=== PATIENT | female | born 1980 | race Caucasian/White ===

== ENCOUNTER 2016-05-31 16:54 | Emergency (ER) | payer SELFPAY ==
[2016-05-31 16:55] VITALS: BMI 38.0
[2016-05-31 17:40] VITALS: TEMP 98
[2016-05-31 18:13] LABS: AUTOMATED BASOPHIL 0.8 % (0-2); AUTOMATED EOSINOPHIL 2.5 % (0-5); AUTOMATED MONOCYTE 8.3 % (3-10); AUTOMATED NEUTROPHIL 49.4 % (45-76); MPV 7.6 fL (7.4-10.4)
[2016-05-31 18:26] LABS: BLOOD UREA NITROGEN 16 MG/DL (7-17); CALCIUM 9.6 MG/DL (8.4-10.2); CALCULATED OSMOLALITY 266 MOs/Kg (270-290); CHLORIDE 107 mEq/L (98-107); GLUCOSE 86 MG/DL (70-99); SODIUM LEVEL 138 mEq/L (137-146); TOTAL PROTEIN 7.2 G/DL (6.3-8.2)
[2016-05-31] MEDS ORDERED: ONDANSETRON HCL 4 MG/2 ML VIAL IV ONE (23:16)
[2016-05-31] MEDS ORDERED: MORPHINE 4 MG/ML INJECTION IV ONE (23:16)
[2016-05-31] MEDS ORDERED: NS 1,000 ML IV ONE (23:16)
--- NOTE | 2016-05-31 23:21 | EDPRACDOC ---
- General Information Chief Complaint: Vaginal Bleeding Stated Complaint: 21 DAYS VAGINAL BLEEDING ABD PAIN VOMITING Time Seen by Provider: 05/31/16 23:11 Information Source: Patient Mode of Arrival: Car Home Medications: Home Medications Ondansetron HCl [Zofran] 4 mg PO Q6H PRN #15 tab 04/03/16 Oxycodone HCl [Roxicodone] 5 mg PO Q4-6H PRN #10 tablet 04/03/16 Phenazopyridine [Pyridium] 100 mg PO TID #14 tab 04/03/16 Sulfamethoxazole/Trimethoprim [Bactrim Ds Tablet] 1 tab PO BID #14 tab 04/03/16 Ketorolac Tromethamine [Toradol] 10 mg PO Q6H PRN #20 tab 06/01/16 Medroxyprogesterone Acetate [Provera] 10 mg PO DAILY #10 tablet 06/01/16 Oxycodone HCl [Roxicodone] 5 mg PO Q6H #15 tablet 06/01/16 Allergies/Adverse Reactions: Allergies Allergy/AdvReac Type Severity Reaction Status Date / Time No Known Allergies Allergy Verified 01/11/12 14:15 - History of Present Illness Onset: 21 DAYS HPI: PT SAID THAT SHE'S HAD 21 DAYS OF VAGINAL BLEEDING. SHE ALSO HAS LOWER ABD PAIN AND N/V FOR 3 DAYS. PT DOES NOT HAVE A DR, SO SHE CAME TO THE ED. Description: Reports: Spontaneous Location: Reports: Internal Vagina Relevant History: Reports: None Control Method: Reports: None Pain Severity: Moderate Vaginal Bleeding Description: Reports: Bright Red ED Past Medical History - History Reviewed No Past Medical History: Yes Patient has no past medical history - Patient Medical History Psychological History: Denies: Depression Surgical History: Reports: Cholecystectomy, Tonsillectomy/Adnoidectomy - Family Medical History Reports: Cancer - Social Medical History Smoking Status: Heavy tobacco smoker (5 or more cigarettes/day or daily pipe/ cigar) ETOH: None Substance Abuse: None Lives With: Significant Other Lives In: Home EDM Review of Systems - Review of Systems ROS Negative Except as Marked: Yes All systems reviewed and were negative except as marked Gastrointestinal: Nausea, Pain, Vomiting Genitourinary: Vaginal Bleeding - Physical Exam Constitutional: Alert (Awake), No apparent distress Oriented to: Time, Person, Place Last recorded Vital Signs: Last Vital Signs Temp 98 F 05/31/16 17:37 Pulse 91 05/31/16 17:37 Resp 20 05/31/16 17:37 BP 168/88 05/31/16 17:37 Pulse Ox 98 05/31/16 17:37 Oxygen Pulse Oxygen Saturation 98 O2 Device Room Air Oxygen Flow Rate Fraction of Inspired Oxygen ( FIO2) - HEENT Head: Normal ( normocephalic) Eye Exam: Normal (PERRL, EOMI, Sclera white) Oropharynx: Normal (Pharynx:Moist without exudate,Gums-no swelling) ENT EAC: Normal TMJ: Normal Nose: No Symptoms Reported (septum midline) Neck: Normal (FROM, trachea at midline) - Respiratory/Cardiovascular Respiratory: Normal - CTA (BBS clear to auscultation without adventitious sounds ) Cardiovascular: Normal (RRR without murmur, gallop or rub) - GI Auscultation: Normal (NABS) Palpation: Normal (Soft,No rebound or guarding, non distended) Tenderness: Suprapubic Levin's Sign: Negative - Bladder: Normal External: Normal Vagina: Blood Cervix: Blood Uterus: Normal size Adnexa: Bilateral: Tender - Musculoskeletal Back: Normal (Non-Tender) Extremities: Normal (Normal tone, Pulses 2+ No cyanosis or edema, FROM) - Integumentary Skin: Normal, Warm, Dry Lymphatics: Normal (no adenopathy) - Neurologic Memory Impaired: Normal Motor Function: Normal (Normal tone, Pulses 2+ No cyanosis or edema, FROM) Cranial Nerve: Normal (CN II-X11 intact sensation, strength 5/5) Cerebellar: Normal Mood Description: Normal Thought: Coherent Perception: Normal - Results 05/31/16 17:43 05/31/16 17:43 WBC 11.3 xk/uL (3.8-10.8) H 05/31/16 17:43 RBC 4.21 xM/uL (4.20-5.40) 05/31/16 17:43 Hgb 12.9 g/dL (12.0-16.0) 05/31/16 17:43 Hct 38.4 % (36-47) 05/31/16 17:43 MCV 91 fL (81-99) 05/31/16 17:43 MCH 30.6 pg (27-32) 05/31/16 17:43 MCHC 33.6 g/dl (33-36) 05/31/16 17:43 RDW 13.7 % (11.5-14.5) 05/31/16 17:43 Plt Count 349 xk/uL (130-400) 05/31/16 17:43 MPV 7.6 fL (7.4-10.4) 05/31/16 17:43 Neut % (Auto) 49.4 % (45-76) 05/31/16 17:43 Lymph % (Auto) 39.0 % (17-44) 05/31/16 17:43 [place] % (Auto) 8.3 % (3-10) 05/31/16 17:43 Eos % (Auto) 2.5 % (0-5) 05/31/16 17:43 Baso % (Auto) 0.8 % (0-2) 05/31/16 17:43 Absolute Neuts (auto) 5.54 xk/uL (1.7-8.2) 05/31/16 17:43 Absolute Lymphs (auto) 4.41 xk/uL (0.65-4.75) 05/31/16 17:43 Sodium 138 mEq/L (137-146) 05/31/16 17:43 Potassium 4.4 mEq/L (3.5-5.1) 05/31/16 17:43 Chloride 107 mEq/L (98-107) 05/31/16 17:43 Carbon Dioxide 21 mMOL/L (22-33) L 05/31/16 17:43 Anion Gap 14 mEq/L (8-16) 05/31/16 17:43 BUN 16 MG/DL (7-17) 05/31/16 17:43 Creatinine 0.60 MG/DL (0.52-1.04) 05/31/16 17:43 Estimated GFR (MDRD) > 60 mL/min (>=60) 05/31/16 17:43 Glucose 86 MG/DL (70-99) 05/31/16 17:43 Calculated Osmolality 266 MOs/Kg (270-290) L 05/31/16 17:43 Calcium 9.6 MG/DL (8.4-10.2) 05/31/16 17:43 Total Bilirubin 0.2 MG/DL (0.2-1.3) 05/31/16 17:43 AST 13 IU/L (14-36) L 05/31/16 17:43 ALT 33 IU/L (9-52) 05/31/16 17:43 Alkaline Phosphatase 70 IU/L (38-126) 05/31/16 17:43 Total Protein 7.2 G/DL (6.3-8.2) 05/31/16 17:43 Albumin 4.0 G/DL (3.5-5.0) 05/31/16 17:43 Lab Results 05/31/16 05/31/16 17:43 17:43 WBC 11.3 H RBC 4.21 Hgb 12.9 Hct 38.4 MCV 91 MCH 30.6 MCHC 33.6 RDW 13.7 Plt Count 349 MPV 7.6 Neut % (Auto) 49.4 Lymph % (Auto) 39.0 [place] % (Auto) 8.3 Eos % (Auto) 2.5 Baso % (Auto) 0.8 Absolute Neuts (auto) 5.54 Absolute Lymphs (auto) 4.41 Sodium 138 Potassium 4.4 Chloride 107 Carbon Dioxide 21 L Anion Gap 14 BUN 16 Creatinine 0.60 Estimated GFR (MDRD) > 60 Glucose 86 Calculated Osmolality 266 L Calcium 9.6 Total Bilirubin 0.2 AST 13 L ALT 33 Alkaline Phosphatase 70 Total Protein 7.2 Albumin 4.0 - Diagnostic Imaging Abdomen Image interpreted by: Radiologist 1. No CT evidence for acute intra-abdominal or pelvic process. 2. Status post cholecystectomy. Decision Time to Discharge: 02:56 - Departure Yes I personally saw and evaluated the patient. Disposition: Home Condition: Fair Final Diagnosis: Dysfunctional uterine bleeding, Menometrorrhagia Instructions: Dysfunctional Uterine Bleeding (ED) Education/Counseling Given To: Patient, Family Member Education/Counseling Given Regarding: Diagnosis, Treatment, Follow Up Referrals: None,No Provider [Primary Care Provider] - One Week Seth Harman MD [Staff Physician] - One Week Prescriptions: New Ketorolac Tromethamine [Toradol] 10 mg PO Q6H PRN #20 tab PRN Reason: Pain Medroxyprogesterone Acetate [Provera] 10 mg PO DAILY #10 tablet Oxycodone HCl [Roxicodone] 5 mg PO Q6H #15 tablet No Action Oxycodone HCl [Roxicodone] 5 mg PO Q4-6H PRN #10 tablet PRN Reason: Breakthrough Pain Phenazopyridine [Pyridium] 100 mg PO TID #14 tab Sulfamethoxazole/Trimethoprim [Bactrim Ds Tablet] 1 tab PO BID #14 tab Ondansetron HCl [Zofran] 4 mg PO Q6H PRN #15 tab PRN Reason: Nausea/Vomiting
[2016-06-01] MEDS ORDERED: HYDROmorphone 1 MG INJECTION IV ONE ×2 (00:01→01:23)
[2016-06-01] MEDS ORDERED: LORAZEPAM 2 MG/ML VIAL IV ONE (00:47)
[2016-06-01] MEDS ORDERED: Pharmacy Review for Metformin - IV Contrast Given SCH (01:00)
[2016-06-01 01:08] LABS: LEUKOCYTES/URINE NEG (NEGATIVE); NITRITE/URINE NEG (NEGATIVE); RBC/URINE 0-2 (0-5); URINE OCCULT BLOOD 1+ (NEG/TRACE); WBC/URINE 0-2 (0-5)
--- NOTE | 2016-06-01 02:55 | DIRPT ---
CLINICAL DATA: Initial evaluation for severe pelvic pain for 2 days. EXAM: CT ABDOMEN AND PELVIS WITH CONTRAST TECHNIQUE: Multidetector CT imaging of the abdomen and pelvis was performed using the standard protocol following bolus administration of intravenous contrast. CONTRAST: 100 cc of Isovue 370. COMPARISON: Prior study from 12/30/2011. FINDINGS: Mild subsegmental atelectasis seen dependently within the visualized lung bases. Linear opacity within the medial aspect of the right middle lobe also consistent with atelectasis. Visualized lungs are otherwise unremarkable. The liver demonstrates a normal contrast enhanced appearance. Gallbladder absent. Minimal intrahepatic biliary dilatation likely related to post cholecystectomy changes. Spleen, adrenal glands, and pancreas demonstrate a normal contrast enhanced appearance. Kidneys are equal in size with symmetric enhancement. No nephrolithiasis, hydronephrosis, or focal enhancing renal mass. Stomach within normal limits. No evidence for bowel obstruction. No abnormal wall thickening, mucosal enhancement, or inflammatory fat stranding seen about the bowels. No evidence for acute appendicitis. Bladder within normal limits. Uterus and ovaries demonstrate no acute abnormality. Small fat containing left inguinal hernia noted. No free air or fluid. No pathologically enlarged intra-abdominal or pelvic lymph nodes. Normal intravascular enhancement seen throughout the intra-abdominal aorta and its branch vessels. No aneurysm. No acute osseous abnormality. [place] no worrisome lytic or blastic osseous lesions. IMPRESSION: 1. No CT evidence for acute intra-abdominal or pelvic process. 2. Status post cholecystectomy. Electronically Signed By: Severino Painter M.D. On: 06/01/2016 02:53
[2016-06-01] MEDS ORDERED: MEDROXYPROGESTERONE 2.5 MG TAB PO ONE (02:56)
[2016-06-01 03:14] VITALS: BP 115/60; PULSE 62
[2016-06-02 21:37] LABS: CHLAMY BY NUCLEIC ACID AMP Negative (Negative)
[2016-06-03 11:45] LABS: GC BY NUCLEIC ACID AMP Negative (Negative)
== END 2016-06-01 03:15 | disposition home or self-care (01) ==
LOC: ED 16:54
DX: N92.1 Excessive and frequent menstruation with irregular cycle (principal)
CPT/HCPCS: 36415; 74177; 80053; 81001; 81025; 85025; 87210; 87220; 87491; 87591; 96361; 96374; 96375; 96376; 99284; A9698; J1170; J2060; J2270; J2405; J3490

== ENCOUNTER 2016-06-04 14:40 | Emergency (ER) | payer SELFPAY ==
[2016-06-04 14:40] VITALS: BMI 38.0
[2016-06-04 14:48] VITALS: TEMP 97.5
[2016-06-04] MEDS ORDERED: SODIUM CHLORIDE 0.9% 3 ML FLUSH FLUSH PRN (14:53)
[2016-06-04] MEDS ORDERED: NS 1,000 ML IV ONE ×2 (14:53)
[2016-06-04 15:10] LABS: AUTOMATED BASOPHIL 1.5 % (0-2); AUTOMATED EOSINOPHIL 2.9 % (0-5); AUTOMATED MONOCYTE 7.3 % (3-10); AUTOMATED NEUTROPHIL 54.3 % (45-76); MPV 7.3 fL (7.4-10.4)
[2016-06-04 15:16] LABS: BLOOD UREA NITROGEN 12 MG/DL (7-17); CALCIUM 9.4 MG/DL (8.4-10.2); CALCULATED OSMOLALITY 266 MOs/Kg (270-290); CHLORIDE 107 mEq/L (98-107); GLUCOSE 91 mg/dL (70-99); SODIUM LEVEL 138 mEq/L (137-146); TOTAL PROTEIN 7.3 G/DL (6.3-8.2)
[2016-06-04 15:25] LABS: LEUKOCYTES/URINE NEG (NEGATIVE); NITRITE/URINE NEG (NEGATIVE); URINE OCCULT BLOOD 1+ (NEG/TRACE); WBC/URINE 0-2 (0-5)
--- NOTE | 2016-06-04 15:26 | EDPRACDOC ---
- General Information Chief Complaint: Vaginal Bleeding Stated Complaint: ABDOMINAL PAIN Time Seen by Provider: 06/04/16 14:52 Information Source: Patient Mode Of Arrival: Ambulance Home Medications: Home Medications Ketorolac Tromethamine [Toradol] 10 mg PO Q6H PRN #20 tab 06/01/16 Medroxyprogesterone Acetate [Provera] 10 mg PO DAILY #10 tablet 06/01/16 Oxycodone HCl [Roxicodone] 5 mg PO Q6H #15 tablet 06/01/16 Ketoprofen 75 mg PO TID #20 capsule 06/04/16 Oxycodone Immediate Release [Oxycodone Immediate Release (OxyIR)] 5 - 10 mg PO Q6H PRN #15 tab 06/04/16 Allergies/Adverse Reactions: Allergies Allergy/AdvReac Type Severity Reaction Status Date / Time No Known Allergies Allergy Verified 01/11/12 14:15 - History of Present Illness Onset: one month HPI: PT PRESENTS TO ED WITH VAGINAL BLEEDING THAT HAS BEEN GOING ON FOR 21 DAYS STATES WAS SEEN HERE SEVERAL DAYS AGO AND PUT ON PROVERA AND REFERRED TO [facility] BUT THEY WOULDNT SEE HER WITHOUT $300 B/C SHE DOESNT HAVE INSURANCE. PT C/O LLQ SHARP STABBING PAIN FOR THE LAST 1-2 DAYS WITH N/V Pain Location: Reports: LLQ Pain Context: Reports: Spontaneous Pain Severity: Moderate Pain Quality: Reports: Sharp, Stabbing Pain Radiation: Reports: No Radiation : No Control Method: Reports: None Blood Type: Unknown Modifying Factors: improves with: Position, Movement Female Associated Signs & Symptoms: Reports: Nausea, Vomiting Oral Intake: Decreased Urinary Output: Normal - Treatment Prior to ED Arrival Reported Medications/Treatment [employer] EMS Treatment BLS IV No ED Past Medical History - History Reviewed Yes Nurses notes reviewed and agree except as marked Travel Outside of [place] in the Last 3 Months?: No - Patient Medical History Psychological History: Reports: Depression (anxiety) Surgical History: Reports: Cholecystectomy, Tonsillectomy/Adnoidectomy - Family Medical History Reports: Cancer - Social Medical History Smoking Status: Heavy tobacco smoker (5 or more cigarettes/day or daily pipe/ cigar) ETOH: None Substance Abuse: None Lives With: Other Lives In: Home EDM Review of Systems - Review of Systems ROS Negative Except as Marked: Yes All systems reviewed and were negative except as marked Constitutional: No Symptoms Reported. negative: Fever, Chills, Weakness, Fatigue, Loss of Appetite Eyes: No Symptoms Reported. negative: Redness, Blurred Vision, Double Vision, Discharge, Pain, Light Sensitive, Photophobia Ears: No Symptoms Reported. negative: Pain, Hearing Loss, Drainage, Ear Pulling Throat: No Symptoms Reported. negative: Pain, Swelling Nose: No Symptoms Reported. negative: Congestion, Bleeding, Discharge, Injection, Swelling, Deformity, Ecchymosis, Tender, Abrasion, Laceration Mouth: No Symptoms Reported. negative: Pain, Drooling Respiratory: No Symptoms Reported. negative: Cough, Brassy Cough, Barky Cough, Shortness of Breath, Wheezing, Hemoptysis Cardiovascular: No Symptoms Reported. negative: Chest Pain, Palpitations, Syncope, Edema, Orthopnea, PND, Skin Mottling, Cyanosis Gastrointestinal: Nausea, Pain, Vomiting. negative: Constipation, Diarrhea, Formula Intolerance, Melena Genitourinary: No Symptoms Reported. negative: Dysuria, Hematuria, Frequency, Discharge, Bleeding, Testicular Pain, Neurological: No Symptoms Reported. negative: Headache, Dizziness, Seizure, Numbness, Weakness, Speech Difficulty, Gait Difficulty Musculoskeletal: No Symptoms Reported. negative: Neck, Chestwall, Ribs, Back, Shoulder, Arm, Elbow, Forearm, Wrist, Hand, Pelvis, Hip, Femur, Knee, Leg, Ankle , Foot Integumentary: No Symptoms Reported. negative: Itching, Rash, Bruising, Wound Allergic/Immunologic: No Symptoms Reported. negative: Hives, Itching Hematologic: No Symptoms Reported. negative: Lymphadenopathy, Easy Bruising, Easy Bleeding Endocrine: No Symptoms Reported. negative: Weight Gain, Weight Loss Psychiatric: No Symptoms Reported. negative: Anxiety, Depression, Hallucinations, Insomnia, Suicidal - Physical Exam Constitutional: No apparent distress, Alert (Awake) Oriented to: Time, Person, Place Last recorded Vital Signs: Last Vital Signs Temp 97.5 F 06/04/16 14:47 Pulse 92 06/04/16 15:38 Resp 20 06/04/16 15:38 BP 123/80 06/04/16 15:38 Pulse Ox 98 06/04/16 15:38 Oxygen Pulse Oxygen Saturation 98 O2 Device Room Air Oxygen Flow Rate Fraction of Inspired Oxygen ( FIO2) - HEENT Head: Normal ( normocephalic) Eye Exam: Normal (PERRL, EOMI, Sclera white) Oropharynx: Normal (Pharynx:Moist without exudate,Gums-no swelling) Tympanic Membrane: Normal ENT EAC: Normal TMJ: Normal Nose: No Symptoms Reported (septum midline) Neck: Normal (FROM, trachea at midline) - Respiratory/Cardiovascular Respiratory: Normal - CTA (BBS clear to auscultation without adventitious sounds ) Cardiovascular: Normal (RRR without murmur, gallop or rub) - GI Auscultation: Normal (NABS) Palpation: Normal (Soft,No rebound or guarding, non distended) Tenderness: Moderate, LLQ Levin's Sign: Negative - Bladder: Normal Vagina: Blood - Musculoskeletal Back: Normal (Non-Tender) Extremities: Normal (Normal tone, Pulses 2+ No cyanosis or edema, FROM) - Integumentary Skin: Normal, Warm, Dry Lymphatics: Normal (no adenopathy) - Neurologic Memory Impaired: Normal Motor Function: Normal (Normal tone, Pulses 2+ No cyanosis or edema, FROM) Cranial Nerve: Normal (CN II-X11 intact sensation, strength 5/5) Cerebellar: Normal Mood Description: Normal Perception: Normal - Differential Diagnosis Other (DYSFUNCTIONAL UTERINE BLEEDING, DIVERTICULITIS, UTERINE FIBROIDS) - Results 06/04/16 15:00 06/04/16 15:00 WBC 12.5 xk/uL (3.8-10.8) H 06/04/16 15:00 RBC 4.32 xM/uL (4.20-5.40) 06/04/16 15:00 Hgb 13.2 g/dL (12.0-16.0) 06/04/16 15:00 Hct 39.4 % (36-47) 06/04/16 15:00 MCV 91 fL (81-99) 06/04/16 15:00 MCH 30.6 pg (27-32) 06/04/16 15:00 MCHC 33.6 g/dl (33-36) 06/04/16 15:00 RDW 14.2 % (11.5-14.5) 06/04/16 15:00 Plt Count 327 xk/uL (130-400) 06/04/16 15:00 MPV 7.3 fL (7.4-10.4) L 06/04/16 15:00 Neut % (Auto) 54.3 % (45-76) 06/04/16 15:00 Lymph % (Auto) 34.0 % (17-44) 06/04/16 15:00 [place] % (Auto) 7.3 % (3-10) 06/04/16 15:00 Eos % (Auto) 2.9 % (0-5) 06/04/16 15:00 Baso % (Auto) 1.5 % (0-2) 06/04/16 15:00 Absolute Neuts (auto) 6.75 xk/uL (1.7-8.2) 06/04/16 15:00 Absolute Lymphs (auto) 4.25 xk/uL (0.65-4.75) 06/04/16 15:00 Sodium 138 mEq/L (137-146) 06/04/16 15:00 Potassium 4.3 mEq/L (3.5-5.1) 06/04/16 15:00 Chloride 107 mEq/L (98-107) 06/04/16 15:00 Carbon Dioxide 22 mMOL/L (22-33) 06/04/16 15:00 Anion Gap 13 mEq/L (8-16) 06/04/16 15:00 BUN 12 MG/DL (7-17) 06/04/16 15:00 Creatinine 0.60 MG/DL (0.52-1.04) 06/04/16 15:00 Estimated GFR (MDRD) > 60 mL/min (>=60) 06/04/16 15:00 Glucose 91 mg/dL (70-99) 06/04/16 15:00 Calculated Osmolality 266 MOs/Kg (270-290) L 06/04/16 15:00 Calcium 9.4 MG/DL (8.4-10.2) 06/04/16 15:00 Total Bilirubin 0.4 MG/DL (0.2-1.3) 06/04/16 15:00 AST 15 IU/L (14-36) 06/04/16 15:00 ALT 30 IU/L (9-52) 06/04/16 15:00 Alkaline Phosphatase 72 IU/L (38-126) 06/04/16 15:00 Total Protein 7.3 G/DL (6.3-8.2) 06/04/16 15:00 Albumin 4.1 G/DL (3.5-5.0) 06/04/16 15:00 Urine Color Pale yellow 06/04/16 15:05 Urine Clarity Clear 06/04/16 15:05 Urine pH 6.0 (5.0-8.0) 06/04/16 15:05 Ur Specific [place] 1.015 (1.003-1.035) 06/04/16 15:05 Urine Protein Neg (NEG/TRACE) 06/04/16 15:05 Urine Glucose (UA) Neg (NEGATIVE) 06/04/16 15:05 Urine Ketones Neg (NEGATIVE) 06/04/16 15:05 Urine Occult Blood 1+ (NEG/TRACE) H 06/04/16 15:05 Urine Nitrite Neg (NEGATIVE) 06/04/16 15:05 Urine Bilirubin Neg (NEGATIVE) 06/04/16 15:05 Urine Urobilinogen <2.0 MG/DL (0-1) 06/04/16 15:05 Ur Leukocyte Esterase Neg (NEGATIVE) 06/04/16 15:05 Urine RBC 2-5 (0-5) 06/04/16 15:05 Urine WBC 0-2 (0-5) 06/04/16 15:05 Ur Epithelial Cells 1+ 06/04/16 15:05 Urine Bacteria Few (NEG/FEW) 06/04/16 15:05 Urine Mucus Occ (NEG/OCC) 06/04/16 15:05 Lab Results 06/04/16 06/04/16 06/04/16 15:05 15:00 15:00 WBC 12.5 H RBC 4.32 Hgb 13.2 Hct 39.4 MCV 91 MCH 30.6 MCHC 33.6 RDW 14.2 Plt Count 327 MPV 7.3 L Neut % (Auto) 54.3 Lymph % (Auto) 34.0 [place] % (Auto) 7.3 Eos % (Auto) 2.9 Baso % (Auto) 1.5 Absolute Neuts (auto) 6.75 Absolute Lymphs (auto) 4.25 Sodium 138 Potassium 4.3 Chloride 107 Carbon Dioxide 22 Anion Gap 13 BUN 12 Creatinine 0.60 Estimated GFR (MDRD) > 60 Glucose 91 Calculated Osmolality 266 L Calcium 9.4 Total Bilirubin 0.4 AST 15 ALT 30 Alkaline Phosphatase 72 Total Protein 7.3 Albumin 4.1 Urine Color Pale yellow Urine Clarity Clear Urine pH 6.0 Ur Specific [place] 1.015 Urine Protein Neg Urine Glucose (UA) Neg Urine Ketones Neg Urine Occult Blood 1+ H Urine Nitrite Neg Urine Bilirubin Neg Urine Urobilinogen <2.0 Ur Leukocyte Esterase Neg Urine RBC 2-5 Urine WBC 0-2 Ur Epithelial Cells 1+ Urine Bacteria Few Urine Mucus Occ - Diagnostic Imaging CT ABD/PEL Image interpreted by: Radiologist 06/04/16 16:18 Final Report CLINICAL DATA: Left lower quadrant abdomen pain for 2 days. Vaginal bleeding for 21 days. EXAM: CT ABDOMEN AND PELVIS WITH CONTRAST TECHNIQUE: Multidetector CT imaging of the abdomen and pelvis was performed using the standard protocol following bolus administration of intravenous contrast. CONTRAST: 100 mL Isovue 370 COMPARISON: June 01, 2016 FINDINGS: The liver, spleen, pancreas, adrenal glands and kidneys are normal. There is no hydronephrosis bilaterally. There is minimal intrahepatic biliary ductal dilatation, postsurgical. The patient is status post prior cholecystectomy. The aorta is normal in caliber without aneurysmal dilatation. There is minimal atherosclerosis of the iliac arteries. There is no abdominal lymphadenopathy. There is no small bowel obstruction or diverticulitis. The appendix is not seen but no inflammation is noted around cecum. Moderate bowel content is identified throughout colon. Fluid-filled bladder is normal. There is heterogeneous enhancement of the uterine myometrium with lobulated contour suggesting myomatous infiltration. The small low-density in the right ovary probably follicular cyst. The lung bases are clear. No acute abnormalities identified in the visualized bones. IMPRESSION: No acute abnormality identified in the abdomen. No small bowel obstruction or diverticulitis. The patient status post prior cholecystectomy. Heterogeneous enhancement of uterine myometrium with lobulated contour, suggesting myomatous infiltration. Decision Time to Discharge: 16:21 - Departure Disposition: Home Condition: Stable Final Diagnosis: UTERINE FIBROIDS, Dysfunctional uterine bleeding Instructions: Dysfunctional Uterine Bleeding (ED), Uterine Fibroids (ED) Referrals: None,No Provider [Primary Care Provider] - One Week Seth Harman MD [Staff Physician] - One Week Prescriptions: New Ketoprofen 75 mg PO TID #20 capsule Oxycodone Immediate Release [Oxycodone Immediate Release (OxyIR)] 5 - 10 mg PO Q6H PRN #15 tab PRN Reason: Pain No Action Ketorolac Tromethamine [Toradol] 10 mg PO Q6H PRN #20 tab PRN Reason: Pain Medroxyprogesterone Acetate [Provera] 10 mg PO DAILY #10 tablet Oxycodone HCl [Roxicodone] 5 mg PO Q6H #15 tablet Additional Instructions: PLEASE FOLLOW UP WITH SUPERVISING LAW ENFORCEMENT ANALYST WHEN ABLE, YOU MAY CALL THE HEALTH DEPARTMENT FOR FOLLOW UP VISIT WELL. RETURN FOR WORSE OR DIFFERENT SYMPTOMS.
[2016-06-04] MEDS ORDERED: ONDANSETRON HCL 4 MG/2 ML VIAL IV ONE (15:28)
[2016-06-04] MEDS ORDERED: MORPHINE 4 MG/ML INJECTION IV ONE ×2 (15:28→16:04)
[2016-06-04] MEDS ORDERED: Pharmacy Review for Metformin - IV Contrast Given SCH (16:00)
--- NOTE | 2016-06-04 16:08 | DIRPT ---
CLINICAL DATA: Left lower quadrant abdomen pain for 2 days. Vaginal bleeding for 21 days. EXAM: CT ABDOMEN AND PELVIS WITH CONTRAST TECHNIQUE: Multidetector CT imaging of the abdomen and pelvis was performed using the standard protocol following bolus administration of intravenous contrast. CONTRAST: 100 mL Isovue 370 COMPARISON: June 01, 2016 FINDINGS: The liver, spleen, pancreas, adrenal glands and kidneys are normal. There is no hydronephrosis bilaterally. There is minimal intrahepatic biliary ductal dilatation, postsurgical. The patient is status post prior cholecystectomy. The aorta is normal in caliber without aneurysmal dilatation. There is minimal atherosclerosis of the iliac arteries. There is no abdominal lymphadenopathy. There is no small bowel obstruction or diverticulitis. The appendix is not seen but no inflammation is noted around cecum. Moderate bowel content is identified throughout colon. Fluid-filled bladder is normal. There is heterogeneous enhancement of the uterine myometrium with lobulated contour suggesting myomatous infiltration. The small low-density in the right ovary probably follicular cyst. The lung bases are clear. No acute abnormalities identified in the visualized bones. IMPRESSION: No acute abnormality identified in the abdomen. No small bowel obstruction or diverticulitis. The patient status post prior cholecystectomy. Heterogeneous enhancement of uterine myometrium with lobulated contour, suggesting myomatous infiltration. Electronically Signed By: Rayo Alvares M.D. On: 06/04/2016 16:05
[2016-06-04 16:39] VITALS: BP 126/80; PULSE 99
[2016-06-04] MEDS ORDERED: SODIUM CHLORIDE 0.9% 3 ML FLUSH FLUSH SCH (18:00)
== END 2016-06-04 16:04 | disposition home or self-care (01) ==
LOC: ED 14:40
DX: D25.9 Leiomyoma of uterus, unspecified (principal); N93.8 Other specified abnormal uterine and vaginal bleeding
CPT/HCPCS: 36415; 74177; 80053; 81001; 85025; 86850; 86900; 86901; 96361; 96374; 96375; 96376; 99284; A9698; J2270; J2405